=== PATIENT | male | born 1960 | race Caucasian/White ===

== ENCOUNTER 2021-02-04 20:27 | Emergency (ER) | payer MEDICARE ==
[~2021-02-04] VITALS: Ht 188 cm; Wt 126.0 kg
--- NOTE | 2021-02-04 20:37 | NUR ---
EKG DONE IN TRIAGE.
--- NOTE | 2021-02-04 21:06 | NUR ---
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
--- NOTE | 2021-02-04 21:36 | NUR ---
PLACED ON 2L VIA NC FOR O2 SATS 88% ON RA.
[2021-02-04] MEDS ORDERED: ALBUTEROL/IPRATROPIUM 2.5MG/0.5MG, 3 ML ONE (21:49)
[2021-02-04] MEDS ORDERED: ALBUTEROL/IPRATROPIUM 2.5MG/0.5MG, 3 ML NPPB ONE (22:00)
[2021-02-04 22:05] LABS: BASOPHILS % (AUTO) 1 % (0-1); EOSINOPHILS % (AUTO) 0 % (1-7); LYMPHOCYTES % (AUTO) 26 % (22-44); MEAN CORPUSCULAR HEMOGLOBIN 29.2 pg (27.5-34.5); MEAN CORPUSCULAR HGB CONC 33.8 g/dL (33.2-36.2); MEAN PLATELET VOLUME 8.7 fL (7.4-10.4); MONOCYTES % (AUTO) 8 % (2-9); NEUTROPHILS % (AUTO) 66 % (42-75); PLATELET COUNT 114 x10^3/uL (130-400); RED BLOOD COUNT 5.22 x10^6/uL (4.38-5.82); RED CELL DISTRIBUTION WIDTH 14.4 % (9.4-14.8)
[2021-02-04 22:14] LABS: ALANINE AMINOTRANSFERASE 63 U/L (12-78); ANION GAP 8 mmol/L (5-15); CALCIUM 7.8 mg/dL (8.5-10.1); CHLORIDE 99 mmol/L (98-107); CREATININE 0.76 mg/dL (0.7-1.3)
[2021-02-04 22:16] LABS: ALKALINE PHOSPHATASE 141 U/L (45-117); BILIRUBIN,TOTAL 1.2 mg/dL (0.2-1.0); TOTAL PROTEIN 6.8 g/dL (6.4-8.2)
[2021-02-04] MEDS ORDERED: DEXAMETHASONE 4 MG TABLET PO ONE (22:30)
[2021-02-04] MEDS ORDERED: DEXAMETHASONE 4 MG TABLET ONE (22:32)
[2021-02-04 22:38] VITALS: BP 161/88
--- NOTE | 2021-02-04 22:38 | NUR ---
WALKING PULSE OX 88% ON RA. TACHY 120. DR. POND AWARE. PT INTENDS TO SIGN OUT AMA.
[2021-02-04] MEDS ORDERED: DILTIAZEM 5 MG/ML, 5ML ONE (22:59)
--- NOTE | 2021-02-04 23:33 | NUR ---
PT SIGNED ALL AMA PAPERWORK, DICHARGED ACCORIDNGLY.
[2021-02-05 13:50] LABS: TROPONIN I < 0.015 ng/mL (0.000-0.045)
[2021-02-06] MEDS ORDERED: AMOX500T PO (12:14)
[2021-02-06] MEDS ORDERED: DOXY100C5 PO (12:14)
[2021-02-06] MEDS ORDERED: AMLO-150 PO (12:14)
== END 2021-02-04 23:35 | disposition left against medical advice (07) ==
LOC: ED 21:00
DX: J12.9 Viral pneumonia, unspecified (principal); B34.9 Viral infection, unspecified; J06.9 Acute upper respiratory infection, unspecified; R09.02 Hypoxemia; R06.02 Shortness of breath; Z20.822 Contact with and (suspected) exposure to COVID-19; I45.10 Unspecified right bundle-branch block; I10 Essential (primary) hypertension; Z87.891 Personal history of nicotine dependence
CPT/HCPCS: 71045; 80053; 85025; 93005; 94640; 99285; U0003; U0005; 36415; 83615; 84484; 85379; 86140